=== PATIENT | female | born 1945 | race Caucasian/White ===

== ENCOUNTER → 2020-10-12 | Outpatient (CLI) | payer MEDICARE, OTHER | END | disposition home or self-care (01) | LOC: CVU 08:34 | PROVIDERS: ATTEND Internal Medicine Cardiovascular Disease | DX: I65.23 Occlusion and stenosis of bilateral carotid arteries (principal); I10 Essential (primary) hypertension | CPT/HCPCS: 93880 ==

== ENCOUNTER → 2020-11-02 | Outpatient (CLI) | payer MEDICARE, OTHER | END | disposition home or self-care (01) | LOC: CFH 09:49 | PROVIDERS: ATTEND Physician Assistant Medical | DX: I25.10 Atherosclerotic heart disease of native coronary artery without angina pectoris (principal); E78.2 Mixed hyperlipidemia; J84.10 Pulmonary fibrosis, unspecified; I35.8 Other nonrheumatic aortic valve disorders | CPT/HCPCS: 75571 ==

== ENCOUNTER 2020-11-26 12:49 | Outpatient (CLI) | payer MEDICARE, OTHER ==
[2020-11-26] MEDS ORDERED: OMNIPAQUE 350 MG/ML, 100ML BOTTLE ONE (16:42)
[2021-01-04] MEDS ORDERED: ENOX80SY5 SQ (11:55)
== END 2020-11-26 23:59 | disposition home or self-care (01) ==
LOC: CFH 12:49
PROVIDERS: ATTEND Surgery
DX: I65.23 Occlusion and stenosis of bilateral carotid arteries (principal); E78.2 Mixed hyperlipidemia; I10 Essential (primary) hypertension; I25.10 Atherosclerotic heart disease of native coronary artery without angina pectoris; Z79.899 Other long term (current) drug therapy; Z85.3 Personal history of malignant neoplasm of breast; Z87.891 Personal history of nicotine dependence; Z88.2 Allergy status to sulfonamides; Z88.8 Allergy status to other drugs, medicaments and biological substances
CPT/HCPCS: 70498; Q9967

== ENCOUNTER 2020-12-23 08:56 | Outpatient (CLI) | payer MEDICARE, OTHER ==
[2020-12-23 09:59] LABS: BASOPHILS % (AUTO) 1 % (0-1); EOSINOPHILS % (AUTO) 1 % (1-7); LYMPHOCYTES % (AUTO) 12 % (22-44); MEAN CORPUSCULAR HEMOGLOBIN 32.8 pg (27.0-34.8); MEAN CORPUSCULAR HGB CONC 33.3 g/dL (32.4-35.8); MEAN PLATELET VOLUME 9.9 fL (7.4-10.4); MONOCYTES % (AUTO) 7 % (2-9); NEUTROPHILS % (AUTO) 80 % (42-75); PLATELET COUNT 138 x10^3/uL (130-400); RED BLOOD COUNT 4.28 x10^6/uL (3.82-5.3); RED CELL DISTRIBUTION WIDTH 14.2 % (9.6-15.2)
[2020-12-23 10:09] LABS: ALANINE AMINOTRANSFERASE 33 U/L (12-78); ALBUMIN 4.3 g/dL (3.4-5.0); ANION GAP 7 mmol/L (5-15); CALCIUM 9.7 mg/dL (8.5-10.1); CHLORIDE 107 mmol/L (98-107); CREATININE 0.66 mg/dL (0.55-1.02)
[2020-12-23 10:11] LABS: ALKALINE PHOSPHATASE 64 U/L (45-117); BILIRUBIN,TOTAL 0.5 mg/dL (0.2-1.0)
[2020-12-23] MEDS ORDERED: HYDR200T72 PO (10:53)
[2020-12-23] MEDS ORDERED: [UNRECOGNIZED DRUG - CODE] PO (10:53)
[2020-12-23] MEDS ORDERED: WARF10TA43 PO (10:53)
[2020-12-23] MEDS ORDERED: AMLO2.5T5 PO (10:53)
[2020-12-23] MEDS ORDERED: LOSA50TA14 PO (10:53)
[2020-12-23] MEDS ORDERED: CHOL10003 PO (12:39)
[2020-12-23] MEDS ORDERED: CA C1TAB59 PO (12:39)
[2020-12-23] MEDS ORDERED: OMEG-28 PO (12:39)
[2020-12-23] MEDS ORDERED: ATOR20TA37 PO (12:39)
[2020-12-23] MEDS ORDERED: WARF-36 PO (12:39)
[2020-12-23] MEDS ORDERED: MULT-709 PO (12:39)
[2021-01-04] MEDS ORDERED: ENOX80SY5 SQ (11:55)
== END 2020-12-23 23:59 | disposition home or self-care (01) ==
LOC: STAR 08:56
PROVIDERS: ATTEND Surgery
DX: Z01.818 Encounter for other preprocedural examination (principal); I65.21 Occlusion and stenosis of right carotid artery
CPT/HCPCS: 36415; 80053; 85025; 93005